=== PATIENT | male | born 1975 | race Caucasian/White ===

== ENCOUNTER 2019-04-05 19:19 | Emergency (ER) | payer OTHER ==
[2019-04-05 19:32] VITALS: BP 140/82; PULSE 85; TEMP 97.8; BMI 32.1
[2019-04-05] MEDS ORDERED: SODIUM CHLORIDE 0.9% 500 ML INFUS.BAG IV ONE (20:26)
[2019-04-05 20:52] LABS: BASO % 0.7 % (0-2.0); EOS % 0.9 % (0-4.5); HEMATOCRIT 44.4 % (35.4-49); HEMOGLOBIN 15.9 GM/dL (11.7-16.9); LYMPH % 15.3 % (8-40); MCH 30.9 pg (25.7-33.7); MCHC 35.7 g/dl (32.0-35.9); MEAN CELL VOLUME 86.5 fl (80-96); MEAN PLT VOLUME 10.3 fl (7.5-11.1); MONO % 5.2 % (3.8-10.2); NEUT % 77.9 % (42.8-82.8); PLATELET COUNT 201 K/MM3 (134-434); RBC 5.13 M/mm3 (4.00-5.60); RDW 12.6 % (11.9-15.9); WHITE BLOOD COUNT 8.9 K/mm3 (4.0-10.0)
[2019-04-05 21:12] LABS: ALBUMIN 4.2 g/dl (3.4-5.0); BLOOD UREA NITROGEN 17.3 mg/dL (7-18); CALCIUM 8.9 mg/dL (8.5-10.1); POTASSIUM 4.1 mmol/L (3.5-5.1); TOT PROT 7.9 g/dl (6.4-8.2)
[2019-04-05 21:14] LABS: EPI CELLS 0.4 /HPF (0-5/HPF); HYALINE CASTS 0 /lpf (0-8); URINE APPEARANCE CLEAR; URINE BACTERIA 1.2 /hpf (NEGATIVE); URINE BILIRUBIN NEGATIVE (NEGATIVE); URINE COLOR ORANGE; URINE GLUCOSE (UA) 3+ (NEGATIVE); URINE KETONE NEGATIVE (NEGATIVE); URINE LEUK ESTERASE NEGATIVE (NEGATIVE); URINE NITRITE NEGATIVE (NEGATIVE); URINE PROTEIN 1+ (NEGATIVE); URINE RBC 589 /hpf (0-4); URINE WBC 1 /hpf (0-5)
--- NOTE | 2019-04-05 21:30 | PDOC ---
History of Present Illness - General Chief Complaint: Hematuria Stated Complaint: PAIN TO URINATE/PASSING BLOOD Time Seen by Provider: 04/05/19 20:15 History Source: Patient Exam Limitations: No Limitations - History of Present Illness Initial Comments: 04/05/19 21:24 44-year-old Wolof-speaking male denies past medical history presents complaining of suprapubic pressure, urinary frequency and hematuria since 10 AM this morning. Since 1 PM this afternoon he has been passing clots from his urethra. Denies fever, chills, nausea, vomiting, back pain, penile discharge, penile pain, testicular pain. Denies having similar symptoms in the past. ROS: GENERAL/CONSTITUTIONAL: No fever, chills, weakness, dizziness HEAD, EYES, EARS, NOSE AND THROAT: No changes in vision, No ear pain or discharge, No sore throat CARDIOVASCULAR: No chest pain RESPIRATORY: No shortness of breath or cough GASTROINTESTINAL: No pain, nausea, vomiting, diarrhea or constipation GENITOURINARY: Positive hematuria, urinary frequency, no dysuria MUSCULOSKELETAL: No neck or back pain SKIN: No rash NEUROLOGIC: No headache, vertigo, loss of consciousness, or loss of sensation PE: GENERAL: well-appearing, NAD HEAD: NCAT EYES: Pupils equal, round and reactive to light, sclera anicteric, conjunctiva clear ENT: pharynx: no erythema, no exudate, uvula midline NECK: supple CHEST: nontender RESP: clear, no w/r/r CARDIO: rrr, no m/g/r ABD: +BS, soft, nontender, non distended BACK: no midline spinal ttp, no CVAT EXTREMITIES: Normal range of motion, no edema NEUROLOGICAL: Normal speech, normal gait SKIN: Warm, Dry Past History - Past Medical History Allergies/Adverse Reactions: Allergies Allergy/AdvReac Type Severity Reaction Status Date / Time No Known Allergies Allergy Verified 04/05/19 19:32 COPD: No - Psycho Social/Smoking Cessation Hx Smoking History: Never smoked *Physical Exam - Vital Signs Last Vital Signs Temp Pulse Resp BP Pulse Ox 97.8 F 85 16 140/82 16 L 04/05/19 19:31 04/05/19 19:31 04/05/19 19:31 04/05/19 19:31 04/05/19 19:31 ED Treatment Course - LABORATORY CBC & Chemistry Diagram: 04/05/19 20:30 04/05/19 20:30 - ADDITIONAL ORDERS Additional order review: Laboratory Results 04/05/19 04/05/19 20:30 20:30 Sodium 138 Potassium 4.1 Chloride 102 Carbon Dioxide 26 Anion Gap 9 BUN 17.3 Creatinine 1.0 Est GFR (CKD-EPI)AfAm 106.36 Est GFR (CKD-EPI)NonAf 91.77 Random Glucose 379 H Calcium 8.9 Total Bilirubin 1.0 AST 22 ALT 63 H Alkaline Phosphatase 108 Total Protein 7.9 Albumin 4.2 Urine Color [place] Urine Appearance Clear Urine pH 6.0 Ur Specific [place] 1.037 H Urine Protein 1+ H Urine Glucose (UA) 3+ H Urine Ketones Negative Urine Blood 3+ H Urine Nitrite Negative Urine Bilirubin Negative Urine Urobilinogen 1.0 Ur Leukocyte Esterase Negative Urine WBC (Auto) 1 Urine RBC (Auto) 589 Urine Casts (Auto) 0 U Epithel Cells (Auto) 0.4 Urine Bacteria (Auto) 1.2 04/05/19 20:30 RBC 5.13 MCV 86.5 MCHC 35.7 RDW 12.6 MPV 10.3 Neutrophils % 77.9 Lymphocytes % 15.3 Monocytes % 5.2 Eosinophils % 0.9 Basophils % 0.7 - Medications Given in the ED: ED Medications Discontinued Medications Generic Name Dose Route Start Last Admin Trade Name Freq PRN Reason Stop Dose Admin Sodium Chloride 1,000 ml 04/05/19 20:26 04/05/19 20:48 Normal Saline - IV 04/05/19 20:27 1,000 ml ONCE ONE Administration Medical Decision Making - Medical Decision Making 04/05/19 21:29 44-year-old male denies past medical history presents complaining of urinary frequency, suprapubic pressure and hematuria today. Denies fever, chills, back pain, nausea, vomiting, testicular pain or penile pain. Will send CBC, CMP, UA and urine culture Urine GC chlamydia IV fluids Reassess 04/05/19 23:05 Glucose 350s UA positive for blood, no WBCs, no nitrites Patient passing small amount of clots after 1 L of IV fluids Signed out to Dr. Kim in the main ED for further evaluation Discharge - Discharge Information Problems reviewed: Yes Clinical Impression/Diagnosis: Hematuria Qualifiers: Hematuria type: unspecified type Qualified Code(s): R31.9 - Hematuria, unspecified Condition: Stable - Follow up/Referral - Patient Discharge Instructions - Post Discharge Activity
--- NOTE | 2019-04-06 00:58 | PDOC ---
*Physical Exam - Vital Signs Last Vital Signs Temp Pulse Resp BP Pulse Ox 97.8 F 85 16 140/82 16 L 04/05/19 19:31 04/05/19 19:31 04/05/19 19:31 04/05/19 19:31 04/05/19 19:31 ED Treatment Course - LABORATORY CBC & Chemistry Diagram: 04/05/19 20:30 04/05/19 20:30 - ADDITIONAL ORDERS Additional order review: Laboratory Results 04/05/19 04/05/19 20:30 20:30 Sodium 138 Potassium 4.1 Chloride 102 Carbon Dioxide 26 Anion Gap 9 BUN 17.3 Creatinine 1.0 Est GFR (CKD-EPI)AfAm 106.36 Est GFR (CKD-EPI)NonAf 91.77 Random Glucose 379 H Calcium 8.9 Total Bilirubin 1.0 AST 22 ALT 63 H Alkaline Phosphatase 108 Total Protein 7.9 Albumin 4.2 Urine Color [place] Urine Appearance Clear Urine pH 6.0 Ur Specific [place] 1.037 H Urine Protein 1+ H Urine Glucose (UA) 3+ H Urine Ketones Negative Urine Blood 3+ H Urine Nitrite Negative Urine Bilirubin Negative Urine Urobilinogen 1.0 Ur Leukocyte Esterase Negative Urine WBC (Auto) 1 Urine RBC (Auto) 589 Urine Casts (Auto) 0 U Epithel Cells (Auto) 0.4 Urine Bacteria (Auto) 1.2 04/05/19 20:30 RBC 5.13 MCV 86.5 MCHC 35.7 RDW 12.6 MPV 10.3 Neutrophils % 77.9 Lymphocytes % 15.3 Monocytes % 5.2 Eosinophils % 0.9 Basophils % 0.7 - Medications Given in the ED: ED Medications Discontinued Medications Generic Name Dose Route Start Last Admin Trade Name Freq PRN Reason Stop Dose Admin Sodium Chloride 1,000 ml 04/05/19 20:26 04/05/19 20:48 Normal Saline - IV 04/05/19 20:27 1,000 ml ONCE ONE Administration Medical Decision Making - Medical Decision Making 04/06/19 00:57 Patient signed out as up triage from fast track. Patient was being worked up for painless hematuria a/w frequency, urgency and suprapubic tenseness. No n/v, recent illness, rash. Afebrile Urine sample visual exam with gross hematuria and clots, UA with +RBC, +protein , negative for any casts Isolated asymptomatic hyperglycemia, not ill appearing, UA pos for glu but neg for ketones, BMP only remarkable for glu of 379, no anemia Patient moved to bed in main ED for CBI Dispo per clinical course CBI initiated, output initially of pink but clear urine, no clots After about 30 minutes of irrigation, output cleared completely. No signs of clots or hematuria DC [facility] follow up w/in 2 weeks PCP follow up for glycemic control Discharge - Discharge Information Problems reviewed: Yes Clinical Impression/Diagnosis: Hematuria Qualifiers: Hematuria type: unspecified type Qualified Code(s): R31.9 - Hematuria, unspecified Condition: Improved Disposition: HOME - Admission No - Follow up/Referral Referrals: Bertin Cazares MD [Staff Physician] - Marvel Cuello MD [Staff Physician] - Alexy Kohli MD., [Staff Physician] - Jose Coelho MD [Staff Physician] - Jose Romero MD [Staff Physician] - - Patient Discharge Instructions Patient Printed Discharge Instructions: DI for Hyperglycemia -- Adult, DI for Hematuria Additional Instructions: You were seen here today for blood in your urine. Initially there were visible clots but your urine cleared completely after irrigation. Please make sure to follow up with one of the listed urologists within the next 2 weeks for a repeat evaluation of your urine and possible further evaluation. If, before your follow up appointment, you note blood in your urine or become unable to pass urine please be re-evaluated emergently. You were also found to have a high blood sugar. Please make sure to follow up with your PCP to have your sugar monitored and managed. Print Language: WOLOF - Post Discharge Activity
== END 2019-04-06 02:40 | disposition home or self-care (01) ==
LOC: JER 19:19 → JERFT 19:19 → JER 04-06 02:40
PROC: 3E0337Z Introduction of Electrolytic and Water Balance Substance into Peripheral Vein, Percutaneous Approach (ICD-10-PCS; principal; 2019-04-05)
DX: R31.9 Hematuria, unspecified (principal)
CPT/HCPCS: 36415; 80053; 81003; 85025; 87086; 87491; 87591; 99283-25

== ENCOUNTER 2022-04-14 21:52 | Emergency (ER) | payer OTHER ==
[2022-04-14 22:06] VITALS: BP 141/90; PULSE 91; RESP 19; TEMP 98.3; BMI 31.1
[2022-04-15] MEDS ORDERED: FAMOTIDINE 20 MG/50 ML IVPB 20 MG/50 ML MG IVPB ONE ×2 (01:46→01:53)
[2022-04-15] MEDS ORDERED: SODIUM CHLORIDE 1,000 ML IV STA (01:48)
[2022-04-15 02:13] LABS: BASO % 0.7 % (0-2.0); EOS % 3.3 % (0-4.5); HEMOGLOBIN 14.3 GM/dL (11.7-16.9); LYMPH % 30.9 % (8-40); MCH 29.6 pg (25.7-33.7); MCHC 34.1 g/dl (32.0-35.9); MEAN CELL VOLUME 86.8 fl (80-96); MEAN PLT VOLUME 9.5 fl (7.5-11.1); MONO % 6.4 % (3.8-10.2); NEUT % 58.7 % (42.8-82.8); PLATELET COUNT 200 10^3/uL (134-434); RBC 4.84 M/mm3 (4.00-5.60); RDW 12.7 % (11.9-15.9); WHITE BLOOD COUNT 6.4 K/mm3 (4.0-10.0)
[2022-04-15] MEDS ORDERED: ACETAMINOPHEN 1000 MG/100 ML BAG IVPB ONE (02:23)
[2022-04-15 02:34] LABS: CALCIUM 9.1 mg/dL (8.5-10.1)
[2022-04-15 02:37] LABS: CREATININE 0.9 mg/dL (0.55-1.3)
[2022-04-15 02:39] LABS: BILIRUBIN,TOTAL 0.8 mg/dL (0.2-1); TOT PROT 7.5 g/dl (6.4-8.2)
[2022-04-15] MEDS ORDERED: ACETAMINOPHEN INJECTION 100 ML IVPB ONE (03:17)
[2022-04-15 05:14] LABS: PH,URINE 5.5 (5.0-8.0); URINE APPEARANCE CLEAR; URINE BILIRUBIN NEGATIVE (NEGATIVE); URINE COLOR YELLOW; URINE GLUCOSE (UA) 2+ (NEGATIVE); URINE KETONE NEGATIVE (NEGATIVE); URINE LEUK ESTERASE NEGATIVE (NEGATIVE); URINE NITRITE NEGATIVE (NEGATIVE); URINE PROTEIN NEGATIVE (NEGATIVE); URINE UROBILINOGEN 0.2 mg/dL (0.2-1.0)
== END 2022-04-15 05:58 | disposition home or self-care (01) ==
LOC: JER 21:52
PROC: 3E033GC Introduction of Other Therapeutic Substance into Peripheral Vein, Percutaneous Approach (ICD-10-PCS; principal; 2022-04-14)
DX: R10.12 Left upper quadrant pain (principal)
CPT/HCPCS: 36415; 71046-TC-FY; 74177-TC; 80053; 81003; 83690; 84484; 85025; 85730; 87086; 93005; 93010; 99285-25; Q9967